=== PATIENT | male | born 1990 | race Hispanic/Latino ===

== ENCOUNTER 2023-12-24 13:20 | Emergency (ER) | payer SELFPAY ==
[~2023-12-24] VITALS: Ht 175.3 cm; Wt 131.2 kg
[2023-12-24] MEDS ORDERED: BUSPIRONE HCL5 MG PO (14:26)
[2023-12-24] MEDS ORDERED: LEVOTHYROXINE50 MC1 (14:26)
[2023-12-24] MEDS ORDERED: METFORMIN HCL500 M2 PO (14:26)
[2023-12-24] MEDS ORDERED: LOSARTAN POTASS50 MG PO (14:26)
[2023-12-24] MEDS ORDERED: AMLODIPINE BESYL5 MG PO (14:26)
[2023-12-24] MEDS ORDERED: METOPROLOL TART50 MG PO (14:26)
[2023-12-24] MEDS ORDERED: IOPAMIDOL 370 MG/ML 100 ML INFUS..BTL INJ ONE (16:02)
[2023-12-24] MEDS ORDERED: PEPCID20 MG PO (16:30)
[2023-12-24 17:04] VITALS: PULSE 69; RESP 18; TEMP 98.3; O2SAT 99
== END 2023-12-24 17:04 | disposition home or self-care (01) ==
LOC: FSED 13:30
DX: K62.5 Hemorrhage of anus and rectum (principal); K76.0 Fatty (change of) liver, not elsewhere classified; F17.210 Nicotine dependence, cigarettes, uncomplicated
CPT/HCPCS: 74177; 80053; 85025; 85610; 99284; Q9967